=== PATIENT | female | born 1970 | race Caucasian/White ===

== ENCOUNTER → 2018-12-17 | Outpatient (CLI) | payer OTHER ==
[~2018-12-17] MED LIST: HYDROCODONE-AP1 EAC6 PO; KEFLEX500 MG PO
--- NOTE | 2018-12-17 15:45 | 2DMMODE ---
[place] [address] 2 D/M-MODE ECHOCARDIOGRAM Name: LADY ROCHA Room: [facility]#: [id number] Admission: 12/17/18 Attend Phys: Kourtney Taylor, Discharge: Date of : 72 Date of Service: 12/17/18 1545 Report #: [id number] THIS REPORT FOR: //name// APPROVED REPORT Study performed: 12/17/2018 14:17:57 EXAM: Comprehensive 2D, Doppler, and color-flow Echocardiogram Patient Location: Out-Patient BSA: 2.25 HR: 77 bpm BP: 160/95 mmHg Other Information Study Quality: Good Indications Murmur 2D Dimensions IVSd: 12.75 (7-11mm) LVOT Diam: 19.96 (18-24mm) LVDd: 48.70 mm PWd: 10.60 (7-11mm) Ascending Ao: 35.56 (22-36mm) LVDs: 28.81 (25-40mm) Aortic Root: 25.33 mm Volumes Left Atrial Volume (Systole) LA ESV Index: 21.00 mL/m2 Aortic Valve AoV Peak Freddie.: 1.47 m/s AO Peak Gr.: 8.65 mmHg LVOT Max P.43 mmHg AO Mean Gr.: 4.46 mmHg LVOT Mean P.15 mmHg LVOT Max V: 1.05 m/s AO V2 VTI: 33.54 cm LVOT Mean V: 0.67 m/s MARYELLEN (VTI): 2.40 cm2 LVOT V1 VTI: 25.69 cm Mitral Valve E/A Ratio: 1.05 MV Decel. Time: 211.34 ms MV E Max Freddie.: 0.93 m/s MV PHT: 61.29 ms MVA (PHT): 3.59 [place] [address] 2 D/M-MODE ECHOCARDIOGRAM Name: LADY ROCHA Room: [facility]#: [id number] Admission: 12/17/18 Attend Phys: Kourtney Taylor, Discharge: Date of : 72 Date of Service: 12/17/18 1545 Report #: [id number] TDI E/Lateral E': 9.30 E/Medial E': 11.63 Medial E' Freddie.: 0.08 m/s Lateral E' Freddie.: 0.10 m/s Pulmonary Valve PV Peak Freddie.: 1.01 m/s PV Peak Gr.: 4.07 mmHg Tricuspid Valve RAP Estimate: 5.00 mmHg TR Peak Gr.: 17.75 mmHg RVSP: 22.75 mmHg PA Pressure: 22.75 mmHg Left Ventricle The left ventricle is normal size. There is normal LV segmental wall motion. There is normal left ventricular wall thickness. Left ventricular systolic function is normal. LVEF is 55-60%. Transmitral Doppler flow pattern suggests impaired LV relaxation. Right Ventricle The right ventricle is normal size. The right ventricular systolic function is normal. Atria The left atrium size is normal. The right atrium size is normal. Aortic Valve The aortic valve is normal in structure. Trace aortic regurgitation. There is no aortic valvular stenosis. Mitral Valve The mitral valve is normal in structure. There is no mitral valve regurgitation noted. No evidence of mitral valve stenosis. Tricuspid Valve The tricuspid valve is normal in structure. Mild tricuspid regurgitation. No pulmonary hypertension. Pulmonic Valve The pulmonary valve is normal in structure. Mild pulmonic regurgitation. Great Vessels The aortic root is normal in size. IVC [place] [address] 2 D/M-MODE ECHOCARDIOGRAM Name: JOSEFINALADY D Room: [facility]#: [id number] Admission: 12/17/18 Attend Phys: Kourtney Taylor, Discharge: Date of : 72 Date of Service: 12/17/18 1545 Report #: [id number] collapses >50% with inspiration. Pericardium There is no pericardial effusion. <Conclusion> The left ventricle is normal size. There is normal left ventricular wall thickness. Left ventricular systolic function is normal. LVEF is 55-60%. Transmitral Doppler flow pattern suggests impaired LV relaxation. Trace aortic regurgitation. Mild tricuspid regurgitation. No pulmonary hypertension. IVC is normal in size and collapses >50% with inspiration. <ELECTRONICALLY SIGNED> By: Ricco Lund MD, FACC 12/17/18 1545 1545 1545 Ricco Lund MD, FACC /INF
== END ==
LOC: M.CRD 14:00
DX: I07.1 Rheumatic tricuspid insufficiency (principal); I25.10 Atherosclerotic heart disease of native coronary artery without angina pectoris; K21.9 Gastro-esophageal reflux disease without esophagitis

== ENCOUNTER → 2021-10-19 | Outpatient (CLI) | payer OTHER ==
[2021-10-19 17:25] LABS: HEMATOCRIT 39.6 % (37.0-47.0); MCHC 32.9 g/dL (28.0-37.0); MCV 88.1 fL (80.0-100.0); RBC 4.5 mil/uL (4.20-5.00); RDW-CV 14.4 % (10.5-14.5); WBC 9.2 thou/uL (4.0-11.0)
== END ==
LOC: M.LAB 16:40
PROVIDERS: ATTEND Internal Medicine Cardiovascular Disease
DX: R06.00 Dyspnea, unspecified (principal)

== ENCOUNTER → 2021-10-25 | Outpatient (CLI) | payer OTHER ==
[2021-10-25 09:56] LABS: CALCIUM 8.9 mg/dL (8.5-10.1); CREATININE 0.6 mg/dL (0.6-1.3); POTASSIUM 3.8 mmol/L (3.5-5.1)
== END ==
LOC: M.LAB 09:19
PROVIDERS: ATTEND Internal Medicine Cardiovascular Disease
DX: R06.00 Dyspnea, unspecified (principal)